=== PATIENT | female | born 1965 | race Caucasian/White ===

== ENCOUNTER 2025-03-05 11:35 | Outpatient (REF) | payer SELFPAY ==
--- OUTSIDE RECORDS SUMMARY | 2025-03-05 15:21 | XMS_ITS | Encounter Summary ---
Author Organization [facility] Address [address] [place] [address] Care Team Providers Care Retort Loader Name Role Phone Alex Milton MD Primary Care Provider [phone] Reason for Visit * Reason Comments Medication Refill Encounter Details Date Type Department Care Team (Late st Contact Info) Description 08/10/[address] [phone] Alex Milton MD [address] [place] [phone] Essential hypertension Social History Tobacco Use Types [...] hypertension documented in this encounter Care Teams Retort Loader Relationship Specialty Start Date End Date Alex Milton MD [address] [phone] PCP - General Internal Medicine 02/08/23 documented as of this encounter
--- OUTSIDE RECORDS SUMMARY | 2025-03-05 15:21 | XMS_ITS | Encounter Summary ---
Author Organization [facility] Address [address] [place] [address] Care Team Providers Care Glass Cut Off Supervisor Name Role Phone Alex Milton MD Primary Care Provider [phone] Reason for Visit * Reason Comments Medication Refill Encounter Details Date Type Department Care Team (Late st Contact Info) Description 08/13/[address] [phone] Alex Milton MD [address] [place] [phone] Essential hypertension Social History Tobacco Use Types [...] hypertension documented in this encounter Care Teams Glass Cut Off Supervisor Relationship Specialty Start Date End Date Alex Milton MD [address] [phone] PCP - General Internal Medicine 02/08/23 documented as of this encounter
--- OUTSIDE RECORDS SUMMARY | 2025-03-05 15:21 | XMS_ITS | Clinical Summary ---
Author Organization [facility] Address [address] [place] [address] Phone Care Team Providers Care Diesel Engine Operator Name Role Phone Jennifer Levine MD Primary [...] Cultural deprivation 12/22/2009 022 Overview (04/06/2022): From [place], has historical interpreter at visits Immunizations Immunization Administration Dates Next [...] to 49 Years) Discontinued 10/01/2017 Care Teams Diesel Engine Operator Relationship Specialty Start Date End Date Jennifer Levine MD PCP - General 11/29/20
--- OUTSIDE RECORDS SUMMARY | 2025-03-05 15:21 | XMS_ITS | Clinical Summary ---
Author Organization [facility] Address [address] [place] [id number] Care Team Providers Care Flight Engineer Performance Qualified Name Role Phone Alex Milton MD Primary Care Provider [phone] Allergies Active Allergy Reactions Criticality Noted Date [...] without long-term current use of insulin (HCC) [facility] COMPREHENSIVE METABOLIC PANEL Routine 12/31/2013 9:22 PM EST from Last 3 Months or Most Recently Relevant to Health Maintenance Results * (ABNORMAL) POCT A1C (02/15/2023 5:13 PM EDT) Hemoglobin A1C 6.9(A) 4.0 - 6.0 % Lot Number 1 Precision Inspector Pass Pass Blood specimen (specimen) 02/15/2023 5:13 [...] PM EST 12/31/2013 9:23 PM EST Alex iMlton MD LAB Edited Result - Final CERNER CONVERSION from Last 3 Months or Most Recently Relevant to Health Maintenance Care Teams Flight Engineer Performance Qualified Relationship Specialty Start Date End Date Alex Milton MD [address] [place] [address] [address] [place] [phone] PCP - General Internal Medicine 02/08/23
--- OUTSIDE RECORDS SUMMARY | 2025-03-05 15:21 | XMS_ITS | Encounter Summary ---
Author Organization [facility] Address [address] [place] [address] Care Team Providers Care Inspector Structural Bonding Name Role Phone Alex Milton MD Primary Care Provider [phone] Encounter Details Date Type Department Care Team (Late st Contact Info) Description 02/05/[address] [place] [address] Alex Milton MD [address] [place] [phone] Social History Tobacco Use Types Packs/Day Years [...] on filedocumented in this encounter Care Teams Inspector Structural Bonding Relationship Specialty Start Date End Date Alex Milton MD [address] [place] [phone] PCP - General Internal Medicine 02/08/23 documented as of this encounter
--- OUTSIDE RECORDS SUMMARY | 2025-03-05 15:22 | XMS_ITS | Encounter Summary ---
Author Organization [facility] Address [address] [place] [address] Care Team Providers Care Trash Truck Driver Name Role Phone Alex Milton MD Primary Care Provider [phone] Reason for Visit * Reason Comments Medication Refill Encounter Details Date Type Department Care Team (Late st Contact Info) Description 08/09/[address] [place] [address] Alex Milton MD [address] [place] [id number] Essential hypertension Social History Tobacco Use Types [...] Guo LPN - 08/09/2023 4:23 PM EDT Diffuser Operator please schedule patient an appointment per refill policy documented in this encounter Plan of Treatment Not on file documented as of this encounter Visit Diagnoses Diagnosis Essential hypertension Unspecified essential hypertension documented in this encounter Care Teams Trash Truck Driver Relationship Specialty Start Date End Date Alex Milton MD [address] [phone] PCP - General Internal Medicine 02/08/23 documented as of this encounter
[2025-03-05 17:53] LABS: Estimated Average Glucose 174 mg/dL; Hemoglobin A1C 231.8706 umol/L; Hemoglobin A1c % 7.7 % (<6.0); Total Hemoglobin (HGBA1C) 3805.9508 umol/L
[2025-03-05 17:54] LABS: Appearance Urine Clear; Color Urine Yellow; Glucose Urine UA >=1000 mg/dL (Negative); Leukocyte Esterase Urine Negative (Negative); Nitrite Urine Negative (Negative); Specific Gravity - Urine 1.015 (1.005-1.025); UMIC TRIGGER UA YES; Urine Blood Negative (Negative); Urine Ketones Negative (Negative); Urine Protein Negative (Neg-Trace)
[2025-03-05 17:59] LABS: Anion Gap 15 (12-20); Blood Urea Nitrogen 25 mg/dL (9-16); Calcium 9.8 mg/dL (8.4-10.2); Carbon Dioxide 28 mmol/L (22-29); Chloride 100 mmol/L (96-108); Estimated Glomerular Filt Rate 49; Potassium 3.7 mmol/L (3.3-5.1); Sodium 139 mmol/L (135-145)
[2025-03-05 18:10] LABS: Bacteria Urine None Seen (None Seen); Hyaline Casts Urine 0-2 /LPF (0-2); RBC Urine 0-2 /HPF (0-2); Squamous Epithelial Cell Urine 0-2 /HPF (0-2); WBC Urine 0-5 /HPF (0-5)
[2025-03-05 18:17] LABS: Creatinine Urine 42.09 mg/dL; Protein/Creatinine Ratio, Ur 0.29 (<0.2); Total Protein Urine Random 12 mg/dL (<12)
== END 2025-03-05 11:36 | disposition home or self-care (01) ==
LOC: HO.HKASLDS 11:35
PROVIDERS: PCP Internal Medicine; Visit Provider Internal Medicine Nephrology
DX: I10 Essential (primary) hypertension (principal); N20.0 Calculus of kidney; N02.B9 Other recurrent and persistent immunoglobulin A nephropathy; E11.21 Type 2 diabetes mellitus with diabetic nephropathy; R10.9 Unspecified abdominal pain
CPT/HCPCS: 36415; 80051; 81001; 82310; 82565; 82570; 83036; 84156; 84520; 99212

== ENCOUNTER 2025-03-05 11:35 | Outpatient (AMB) | payer OTHER, SELFPAY ==
--- NOTE | 2025-03-05 11:41 | HO.NEPHOV ---
Vital Signs 03/05/25 11:49 Height 5 ft 2.99 in Weight 196 lb 4 oz BMI 34.8 BP 124/80 Blood Pressure Location Lt brachial Position Sitting Pulse 69 Pulse Source Pulse Oximeter Pulse Oximetry (%) 96 Oxygen Delivery Method Room Air Intake Visit Reasons: Previous patient-Conf w/daughter Manager Global Required: Yes Manager Global Language: Monegasque Manager Global Services: Manager Global Offered & Declined ([facility] [place] abrasive water jet cutter operator services refused ) Accompanied by: Daughter Allergies ibuprofen [From Advil] Adverse Reaction (Verified 03/05/25 11:48) Unknown HPI Comments Details: I had the pleasure of seeing Sophia in follow up for proteinuria, IgA nephropathy, renal calculus and 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 She has not seen in follow up for a few years due to insurance issues. She continues to have right flank pain for which she was seen in [place] while visiting there. She had blood work and USS which apparently was unrevealing. She has H/O renal stone on the right but denies any radiation of pain , fever or hematuria. She has no edema. She does not check her BP or BS at home. Her renal biopsy in the past showed IgA nephropathy and diabetic nodular sclerosis. She claims to be compliant with medications but is unsure of the names of them( family is going to call later today with medication names). [facility] Medical History (Updated 03/05/25 @ 12:13 by Todd Taveras MD) Renal calculus IgA nephropathy Type 2 diabetes mellitus Hypothyroid Hypertension Surgical History (Updated 03/05/25 @ 11:46 by Nova Mckeon MA) History of thyroid surgery H/O knee surgery Social History (Updated 03/05/25 @ 11:42 by Nova Mckeon MA) Alcohol intake: never Patient Tobacco Use Status: Never used Tobacco Review of Systems Const All systems reviewed & are unremarkable except as noted in HPI and below Physical Exam Vital Signs: Last Vital Signs Pulse 69 03/05/25 11:49 BP 124/80 03/05/25 11:49 Pulse Ox 96 03/05/25 11:49 Oxygen Delivery Method Room Air 03/05/25 11:49 BMI result Body Mass Index 34.8 Const General: comfortable and no acute distress Orientation/consciousness: patient oriented x3 HEENT Head: Yes normocephalic Mouth: Normal oral and palatal mucosa present Eyes EOM: EOMs intact bilaterally Neck Neck: Yes supple Resp Auscultation: clear to auscultation bilaterally Cardio Jugular venous distension: no JVD Rate: regular rate GI Palpation (GI): Soft to palpation Auscultation: normal bowel sounds General: Yes no CVA tenderness Back/Spine/Pelvis Back: no CVA tenderness Skin General skin exam: no rashes or lesions noted Neuro General: patient oriented x3 and moves all extremities Extrem General: Yes no pedal edema Results Reviewed Nephrology Results: Sodium 139 mmol/L (135-145) 03/05/25 Potassium 3.7 mmol/L (3.3-5.1) 03/05/25 Chloride 100 mmol/L (96-108) 03/05/25 Carbon Dioxide 28 mmol/L (22-29) 03/05/25 BUN 25 mg/dL (9-16) H 03/05/25 Creatinine 1.13 mg/dL (0.5-1.4) 03/05/25 Calcium 9.8 mg/dL (8.4-10.2) 03/05/25 Urine Protein Negative mg/dL (Neg-Trace) 03/05/25 Urine Creatinine 42.09 mg/dL 03/05/25 Protein/Creatinin Ratio 0.29 (<0.2) H 03/05/25 Assessment & Plan Assessment & Plan (1) Hypertension: Code(s): I10 - Essential (primary) hypertension Category: Medical Qualifiers: Hypertension type: primary hypertension Qualified Code(s): I10 - Essential (primary) hypertension (2) IgA nephropathy: Code(s): N02.B9 - Other recurrent and persistent immunoglobulin A nephropathy Category: Medical (3) Renal calculus: Code(s): N20.0 - Calculus of kidney Category: Medical (4) Right flank pain: Code(s): R10.9 - Unspecified abdominal pain Category: Medical (5) Nodular type diabetic glomerulosclerosis: Code(s): E11.21 - Type 2 diabetes mellitus with diabetic nephropathy Category: Medical Plan Sophia has proteinuria due to IgA nephropathy as well as diabetic nodular sclerosis( biopsy proven). She was given prednisone years ago. Her blood pressure and blood sugar needs to maintained at goal. She will be a candidate for Jardiance after cutting back on metformin. She is tolerating ARB well. She should take fish oil. She should avoid avoid NSAID's, cut back Na in diet and maintain good hydration. I have ordered a CT abdomen to R/O renal stone disease. Answered all questions. F/U appointment given Orders: Orders Blood Urea Nitrogen Today I10 - Essential (primary) hypertension, N02.B9 - Other recurrent and persistent immunoglobulin A nephropathy, N20.0 - Calculus of kidney Protein Creatinine Ratio, Ur Today I10 - Essential (primary) hypertension, N02.B9 - Other recurrent and persistent immunoglobulin A nephropathy, N20.0 - Calculus of kidney CT abdomen wo IV con Today R10.9 - Unspecified abdominal pain Hemoglobin A1c Today E11.21 - Type 2 diabetes mellitus with diabetic nephropathy Electrolytes Today I10 - Essential (primary) hypertension, N02.B9 - Other recurrent and persistent immunoglobulin A nephropathy, N20.0 - Calculus of kidney Creatinine Today I10 - Essential (primary) hypertension, N02.B9 - Other recurrent and persistent immunoglobulin A nephropathy, N20.0 - Calculus of kidney Calcium Today I10 - Essential (primary) hypertension, N02.B9 - Other recurrent and persistent immunoglobulin A nephropathy, N20.0 - Calculus of kidney UA and rflx microscopic Today I10 - Essential (primary) hypertension, N02.B9 - Other recurrent and persistent immunoglobulin A nephropathy, N20.0 - Calculus of kidney Coding Level of Care Code Est Pt Level 4 (51637) Diagnoses Primary hypertension I10 Hypertension type: primary hypertension IgA nephropathy N02.B9 Renal calculus N20.0 Right flank pain R10.9 Nodular type diabetic glomerulosclerosis E11.21
[2025-03-05 11:49] VITALS: BP 124/80; PULSE 69; O2SAT 96; BMI 34.8
--- OUTSIDE RECORDS SUMMARY | 2025-03-05 14:24 | XMS_ITS | Encounter Summary ---
Author Organization [facility] Address [address] [place] [address] Care Team Providers Care Convention Manager Name Role Phone Alex Milton MD Primary Care Provider [phone] Reason for Visit * Reason Comments Medication Refill Encounter Details Date Type Department Care Team (Late st Contact Info) Description 08/10/[address] [phone] Alex Milton MD [address] [place] [address] Essential hypertension Social History Tobacco Use Types Packs/Day Years Used Date Smoking Tobacco: Never Smokeless Tobacco: Never Alcohol Use Standard Drinks/Week Comments Not Currently 0 (1 standard drink = 0.6 oz pur e alcohol) Comments No Sex and Gender Information Value Date Recorded Sex Assigned at Not on file Legal Sex Female 6:21 PM EDT Gender Identity Not on file Sexual Orientation Not on file documented as of this encounter Plan of Treatment Not on file documented as of this encounter Visit Diagnoses Diagnosis Essential hypertension Unspecified essential hypertension documented in this encounter Care Teams Convention Manager Relationship Specialty Start Date End Date Alex Milton MD [address] [phone] PCP - General Internal Medicine 02/08/23 documented as of this encounter
--- OUTSIDE RECORDS SUMMARY | 2025-03-05 14:24 | XMS_ITS | Clinical Summary ---
Author Organization [facility] Address [address] [place] [address] Phone Care Team Providers Care Animal Rescuer Name Role Phone Jennifer Levine MD Primary Care Pr ovider Allergies Active Allergy Reactions Criticality Noted Date Comments Nsaids 04/29/2019 Has renal disease, and NSAID should not be used Medications atorvastatin (LIPITOR) 20 MG tablet Take 1 tablet by mouth 1 (one) time each day Active levothyroxine (SYNTHROID, LEVOTHROID) 112 MCG tablet Take 1 tablet by mouth 1 (one) time each day Active losartan (COZAAR) 100 MG tablet Take 1 tablet by mouth 1 (one) time each day Active metFORMIN (GLUCOPHAGE) 1000 MG tablet Take 1 tablet by mouth 1 (one) time each day Active chlorthalidone 25 MG tablet Take 1 tablet (25 mg total) by mouth 1 (one) time each day 90 tablet 3 04/06/2022 Active Active Problems Problem Noted Date Diagnosed Date Hypertensive renal disease 04/06/2022 IgA nephropathy 04/06/2022 Proteinuria 04/06/2022 Type 2 diabetes mellitus with diabetic nephropat hy 04/06/2022 Renal calculus 04/06/2022 Flank pain 04/06/2022 Benign essential hypertension 04/28/2014 Resolved Problems Problem Noted Date Diagnosed Date Resolved Date Hypothyroidism 04/06/2022 04/06/2022 Steatosis of liver 04/06/2022 Overview (04/06/2022): IMO update Atrophy of thyroid - acquired 03/25/2021 04/06/2022 Liver function tests outside reference range 04/06/2022 Osteoarthritis of joint of bilateral hands 03/29/2018 04/06/2022 Paroxysmal supraventricular tachycardia 04/03/2017 04/06/2022 Left ventricular hypertrophy 06/11/2015 04/06/2022 Overview (04/06/2022): Last Assessment & Plan: Diastolic dysfunction on echo 05/2015 Gastroesophageal reflux disease 02/23/2012 04/06/2022 Anemia 04/26/2010 04/06/2022 Cultural deprivation 12/22/2009 022 Overview (04/06/2022): From [place], 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 Immunizations Immunization Administration Dates Next Due Influenza, Unspecified 08/01/2010 Pneumococcal Polysaccharide 10/01/2017 Tdap 10/16/2016 Family History Medical History Relation Comments Hypertension Father Diabetes Sibling 1 Heart disease Sibling 2 Relation Status Comments Father Mother Sibling 1 Sibling 2 Social History Tobacco Use Types Packs/Day Years Used Date Smoking Tobacco: Never Smokeless Tobacco: Never Tobacco Cessation:Counseling Given: Not Answered Alcohol Use Standard Drinks/Week Comments No 0 (1 standard drink = 0.6 oz pur e alcohol) Comments Unknown Sex and Gender Information Value Date Recorded Sex Assigned at Not on file Legal Sex Female 4:49 PM EST Gender Identity Not on file Sexual Orientation Not on file Last Filed Vital Signs Vital Sign Reading Time Taken Comments Blood Pressure 126/70 01/04/2023 2:22 PM EST Pulse 87 01/04/2023 2:22 PM EST Temperature - - Respiratory Rate - - Oxygen Saturation - - Inhaled Oxygen Concentration - - Weight 90.5 kg (199 lb 9.6 oz) 01/04/2023 2:22 P M EST Height 167.6 cm (5' 6 ) 04/24/2019 12:01 PM EDT Body Mass Index 32.22 04/24/2019 12:01 PM EDT Plan of Treatment Health Maintenance Due Date Last Done Comments Breast Cancer Screening 1965 Hepatitis B Vaccine (1 of 3 - 19+ 3-dose series) 11/22 Colorectal Cancer Screening: Annual FOBT 2014 Colorectal Cancer Screening: Colonoscopy 2014 Colorectal Cancer Screening: Sigmoidoscopy 2014 Pneumococcal Vaccine: 50+ Years (2 of 2 - PCV) 018 10/01/2017 Diabetes: Ophthalmology Exam 12/20/2020 Diabetes: Pedal Pulse Checked 12/20/2020 Diabetes: Sensory Foot Exam 12/20/2020 Diabetes: Visual Foot Exam 12/20/2020 Diabetes: Hemoglobin A1C 05/18/2023 02/15/2023 Influenza Vaccine (Season Ended) 2025 08/01/20 10 Pneumococcal Vaccine: Peds ( 0 to 5 Years) and At-Risk Patients (6 to 49 Years) Discontinued 10/01/2017 Care Teams Animal Rescuer Relationship Specialty Start Date End Date Jennifer Levine MD PCP - General 11/29/20
--- OUTSIDE RECORDS SUMMARY | 2025-03-05 14:24 | XMS_ITS | Encounter Summary ---
Author Organization [facility] Address [address] [place] [address] Care Team Providers Care Cylinder Machine Operator Name Role Phone Alex Milton MD Primary Care Provider [phone] Encounter Details Date Type Department Care Team (Late st Contact Info) Description 02/05/[address] [place] [phone] Alex Milton MD [address] [place] [phone] Social History Tobacco Use Types Packs/Day Years [...] on file documented as of this encounter Miscellaneous Notes * Telephone Encounter - Cynthia Neumann - 02/20/2024 11:05 AM EDT A call was placed to Sophia Rodríguez in regards to scheduling an appointment for their Hypertension follow up. Left message to call back. * Telephone Encounter - Cynthia Neumann - 02/05/2024 9:57 AM EDT A call was placed to Sophia Rodríguez in regards to scheduling an appointment for their Hypertension follow up. Left message to call back. documented in this encounter Plan of Treatment Not on file documented as of this encounter Visit Diagnoses Not on filedocumented in this encounter Care Teams Cylinder Machine Operator Relationship Specialty Start Date End Date Alex Milton MD [address] [place] [phone] PCP - General Internal Medicine 02/08/23 documented as of this encounter
--- OUTSIDE RECORDS SUMMARY | 2025-03-05 14:24 | XMS_ITS | Encounter Summary ---
Author Organization [facility] Address [address] [place] [address] Care Team Providers Care Vice President Of Contracts Name Role Phone Alex Milton MD Primary Care Provider [phone] Reason for Visit * Reason Comments Medication Refill Encounter Details Date Type Department Care Team (Late st Contact Info) Description 08/13/[address] [phone] Alex Milton MD [address] [place] [address] Essential hypertension Social History Tobacco Use Types [...] hypertension documented in this encounter Care Teams Vice President Of Contracts Relationship Specialty Start Date End Date Alex Milton MD [address] [phone] PCP - General Internal Medicine 02/08/23 documented as of this encounter
--- OUTSIDE RECORDS SUMMARY | 2025-03-05 14:24 | XMS_ITS | Encounter Summary ---
Author Organization [facility] Address [address] [place] [address] Care Team Providers Care Plumber Name Role Phone Alex Milton MD Primary Care Provider [phone] Reason for Visit * Reason Comments Medication Refill Encounter Details Date Type Department Care Team (Late st Contact Info) Description 08/09/[address] [place] [phone] Alex Milton MD [address] [place] [phone] Essential hypertension Social History Tobacco Use Types [...] encounter Miscellaneous Notes * Telephone Encounter - Nova Del Toro MA - 08/22/2023 1:18 PM EDT Lm on , call back and schedule fup appt. * Telephone Encounter - Ashley Guo LPN - 08/09/2023 4:23 PM EDT Communications Project Lead please schedule patient an appointment per refill policy documented in this encounter Plan of Treatment Not on file documented as of this encounter Visit Diagnoses Diagnosis Essential hypertension Unspecified essential hypertension documented in this encounter Care Teams Plumber Relationship Specialty Start Date End Date Alex Milton MD [address] [phone] PCP - General Internal Medicine 02/08/23 documented as of this encounter
--- OUTSIDE RECORDS SUMMARY | 2025-03-05 14:24 | XMS_ITS | Clinical Summary ---
Author Organization [facility] Address [address] [place] [address] Care Team Providers Care Supermarket Manager Name Role Phone Alex Milton MD Primary Care Provider [phone] Allergies Active Allergy Reactions Criticality Noted Date Comments Nsaids Other (See Comments) 04/29/2019 Has renal disease, and NSAID should not be used Medications levothyroxine (SYNTHROID, LEVOTHROID) 175 MCG tablet Take 1 tablet (175 mcg total) by mouth daily on an empty stomach. Active metFORMIN (GLUCOPHAGE) 1000 MG tablet Take 1 tablet (1,000 mg total) by mouth daily. Active olmesartan-hydroCH LOROthiazide (BENICAR HCT) 40-12.5 MG per tablet Take 1 tablet by mouth daily. Active butalbital-acetami nophen-caffeine (FioriCET, ESGIC) 50-325-40 mg tabletIndications: Chronic nonintractable headache, unspecified headache type Take 1 tablet by mouth daily as needed for headaches or migraine. . 30 tablet 3 Active amLODIPine (NORVASC) 10 MG tabletIndications: Essential hypertension TAKE 1 TABLET(10 MG) BY MOUTH DAILY 60 tablet 3 Active propranolol (INDERAL LA) 120 MG 24 hr capsuleIndications :Essential hypertension TAKE 1 CAPSULE(120 MG) BY MOUTH DAILY 60 capsule 4 Active Active Problems Problem Noted Date Diagnosed Date Type 2 diabetes mellitus wit hout complication, without long-term current use of insulin 03/25/2021 Essential hypertension 03/25/2021 Abnormal LFTs 03/25/2021 Atrophy of thyroid (acquired) 03/25/2021 Social History Tobacco Use Types Packs/Day Years Used Date Smoking Tobacco: Never Smokeless Tobacco: Never Tobacco Cessation:Counseling Given: Not Answered Alcohol Use Standard Drinks/Week Comments Not Currently 0 (1 standard drink = 0.6 oz pur e alcohol) Comments No Sex and Gender Information Value Date Recorded Sex Assigned at Not on file Legal Sex Female 6:21 PM EDT Gender Identity Not on file Sexual Orientation Not on file Last Filed Vital Signs Vital Sign Reading Time Taken Comments Blood Pressure 160/90 02/15/2023 4:27 PM EDT Pulse 74 02/15/2023 4:27 PM EDT Temperature 36.4 ??C (97.5 ??F) 02/15/2023 4:27 PM ED T Respiratory Rate 14 02/15/2023 4:27 PM EDT Oxygen Saturation 96% 02/15/2023 4:27 PM EDT Inhaled Oxygen Concentration - - Weight 91.2 kg (201 lb) 02/15/2023 4:27 PM EDT Height 157.5 cm (5' 2 ) 03/25/2021 8:21 AM EDT Body Mass Index 36.76 03/25/2021 8:21 AM EDT Plan of Treatment Health Maintenance Due Date Last Done Comments Hepatitis C Virus Screening 1965 Foot Exam 1975 Lipid Panel 1975 Ophthalmology Exam 1975 HIV Screening 1978 Microalbumin/Creatinine Ratio Urine 1983 DTaP/Tdap/Td Vaccines (1 - Tdap) 1984 Hepatitis B Vaccines (1 of 3 - 19+ 3-dose series) 02/1985 Pneumococcal Vaccines 50+ (1 of 2 - PCV) 1984 Pap Smear (Ages 21-65) 1986 Mammogram 2005 Colonoscopy 2010 Creatinine with GFR 12/31/2014 12/31/2013 Zoster (Shingles) Vaccine (1 of 2) 2015 Hemoglobin A1C 08/18/2023 02/15/2023 Influenza Vaccine 06/19/2024 08/01/2010 COVID-19 Vaccine ( - season) 2024 Procedures Procedure Name Priority Date/Time Associated Diagnosis Comments POCT GLYCOSYLATED HEMOGLOBIN (HGB A1C) Routine 02/15/2023 5:13 PM EDT Type 2 diabetes mellitus without complication, without long-term current use of insulin (HCC) [facility] COMPREHENSIVE METABOLIC PANEL Routine 12/31/2013 9:22 PM EST from Last 3 Months or Most Recently Relevant to Health Maintenance Results * (ABNORMAL) POCT A1C (02/15/2023 5:13 PM EDT) Hemoglobin A1C 6.9(A) 4.0 - 6.0 % Lot Number [employer] Construction Teacher Pass Pass Blood specimen (specimen) 02/15/2023 5:13 PM EDT Alex Milton MD POINT OF CARE TEST ORDERABLES Fi nal Result * (ABNORMAL) Comprehensive Metabolic Panel (12/31/2013 9:22 PM EST) Sodium 144 137 - 145 mmol/L CERNER CONVERSION Potassium 4.3 3.5 - 5.0 mmol/L CERNER CONVERSION Chloride 105 98 - 107 mmol/L CERNER CONVERSION CO2 28 22 - 29 mmol/L CERNER CONVERSION Anion Gap 11 7 - 16 mmol/L CERNER CONVERSION Blood Urea Nitrogen (BUN) 14 7 - 17 mg/dL CERNER CONVERSION Creatinine 0.77(L) 0.80 - 1.50 mg/dL CERNER CONVERSION Comment:IDMS Standardized Me thod. Glucose 100(H) 65 - 99 mg/dL CERNER CONVERSION Comment:Reference Range appl ies only to fasting glucose specimens. Calcium 9.3 8.4 - 10.2 mg/dL CERNER CONVERSION Protein, Total 6.4 6.3 - 8.2 g/dL CERNER CONVERSION Albumin 3.8 3.5 - 5.0 g/dL CERNER CONVERSION Bilirubin, Total 0.5 0.2 - 1.2 mg/dL CERNER CONVERSION Aspartate Aminotrans (AST) 52(H) 14 - 36 unit/L CERNER CONVERSION Alanine Aminotrans (ALT) 56(H) 9 - 52 unit/L CERNER CONVERSION Alkaline Phosphatase 71 38 - 126 unit/L CERNER CONVERSION Globulin 2.6 2.3 - 3.5 g/dL CERNER CONVERSION Albumin/Globulin Ratio 1.46 >=1.00 CERNER CONVERSION eGFR >60.00 >=60.00 CERNER CONVERSION Comment: Normal represents Average GFR for patient age. Reporting Units: ml/min/1.73 square meters Disease indicators: Chronic Kidney Disease- less than 60 ml/min/1.73 square meters *Both calculations assume: Body surface area of 1.73 square meters eGFR Non- >60.00 >=60.00 CERNER CONVERSION eGFR VTE 60.00 CERNER CONVERSION Comment: Normal represents Average GFR for patient age. Reporting Units: ml/min/1.73 square meters Disease indicators: Chronic Kidney Disease- less than 60 ml/min/1.73 square meters *Both calculations assume: Body surface area of 1.73 square meters eGFR VTE Non- 60.00 CERNER CONVERSION Blood specimen (specimen) 12/31/2013 9:22 PM EST 12/31/2013 9:23 PM EST Alex Milton MD LAB Edited Result - Final CERNER CONVERSION from Last 3 Months or Most Recently Relevant to Health Maintenance Care Teams Supermarket Manager Relationship Specialty Start Date End Date Alex Milton MD [address] [place] [address] [address] [place] [phone] PCP - General Internal Medicine 02/08/23
--- OUTSIDE RECORDS SUMMARY | 2025-03-05 14:24 | XMS_ITS ---
Author Name [facility] Organization Unknown History of Medication Use Medication Directions Dispensed Refills Start Date End Date Stat us butalbital-acetamino phen-caffeine (FioriCET, ESGIC) 50-325-40 mg tablet Take 1 tablet by mouth daily as needed for headaches or migraine. . 02/15/2023 active olmesartan-hydroCHLO ROthiazide (BENICAR HCT) 40-12.5 MG per tablet Take 1 tablet by mouth daily. active amLODIPine (NORVASC) 10 MG tablet TAKE 1 TABLET(10 MG) BY MOUTH DAILY 08/10/2023 active Problems Problem Status Onset Date Problem Type Date of Resoluti on Source Type 2 diabetes mellitus without complication, without long-term current use of insulin active 2021-03-25 ProblemAct [facility] Atrophy of thyroid (acquired) active 2021-03-25 ProblemAct [facility] Essential hypertension active 2021-03-25 ProblemAct [facility] Abnormal LFTs active 2021-03-25 ProblemAct [facility] T Encounters Encounter Type Encounter Reason Primary Diagnosis Location Date Ambulatory Essential (prima ry) hypertension [facility] 02/15/2023 Care Team Organization Name Specialty Phone Email Start Date End [facility] Alex Milton Primary Care 02/15/2023 [facility] [place] [facility] Primary Care
== END 2025-03-05 12:38 | disposition home or self-care (01) ==
LOC: HO.HKAS 11:35
PROVIDERS: PCP Internal Medicine; Visit Provider Internal Medicine Nephrology
DX: I10 Essential (primary) hypertension (principal); N02.B9 Other recurrent and persistent immunoglobulin A nephropathy; N20.0 Calculus of kidney; R10.9 Unspecified abdominal pain; E11.21 Type 2 diabetes mellitus with diabetic nephropathy
CPT/HCPCS: 99214